=== PATIENT | female | born 1960 | race Caucasian/White ===

== ENCOUNTER 2024-03-23 05:50 | Observation (INO) | payer OTHER, SELFPAY ==
[2024-03-22 22:44] VITALS: BP 135/75
[2024-03-22 23:01] LABS: % Basophils 0.5 % (0-2); % Eosinophils 2.4 % (0-6); % Immature Granulocytes 0.2 % (0-0.5); % Lymphocytes 38.6 % (20.5-51.1); % Monocytes 7.1 % (1.7-9.3); % Neutrophils 51.2 % (42.2-75.2); Absolute Eosinophils 0.2 10^3/uL (0-0.7); Absolute Lymphocytes 2.4 10^3/uL (1.2-3.4); Absolute Monocytes 0.5 10^3/uL (0.1-0.6); Absolute Neutrophils 3.2 10^3/uL (1.4-6.5); Hematocrit 37.6 % (37.0-47.0); Hemoglobin 12.8 g/dL (12.0-16.0); Mean Platelet Volume 9.5 fL (7.4-10.4); Nucleated Red Blood Cells % 0 %; Platelet Count 251 10^3/uL (130-400); Red Blood Cell Count 4.13 10^6/uL (4.20-5.40); Red Cell Dist. Width 13.1 % (11.5-14.5); White Blood Cell Count 6.3 10^3/uL (4.8-10.8)
[2024-03-22 23:22] LABS: ALT (SGPT) 13 U/L (0-35); AST (SGOT) 23 U/L (14-36); Albumin 4.4 g/dl (3.5-5.0); Alkaline Phosphatase 87 U/L (38-126); Blood Urea Nitrogen 12 mg/dl (7-17); Calcium 10.4 mg/dl (8.4-10.2); Carbon Dioxide 24 mmol/L (22-30); Chloride 106 mmol/L (98-107); Glucose 90 mg/dl (70-99); Lipase 75 U/L (23-300); Potassium 3.7 mmol/L (3.5-5.1); Sodium 139 mmol/L (135-145); Total Bilirubin 0.3 mg/dl (0.2-1.3); Total Protein 6.5 g/dl (6.3-8.2); eGFR > 60.00
[2024-03-22 23:30] LABS: Troponin I < 0.012 ng/ml
[2024-03-23] VITALS (17 sets, daily range): BP systolic 98–150; BP diastolic 61–91; PULSE 71–86; BMI 22.7; BMI 22.3
--- NOTE | 2024-03-23 00:55 | ED.GENMED ---
History of Present Illness
General
Chief Complaint: Chest Problem
Source: patient
Exam Limitations: none
Time Seen by Provider: 03/23/24 00:25
History of Present Illness
History of Present Illness:
This is a 83 year old female that comes in with multiple complaints. States that she started with left sided chest pain. States that this was not going away. State that she is also dizzy and she feels like she is spinning. State that this started at
8pm tonight. States that her chest pain now is just intermittent. States that she is normally slightly SOB. States that she was nauseated and has diarrhea daily. Denies any fever, chills, abd pain, vomiting, headache, urinary burning.
Past History
Past History
ED Past Medical History: Asthma, COPD, GERD, Psychiatric (Anxiety, depression) and Other (Chronic low back pain, narcotic dependent, Spinal stenosis)
ED Past Surgical History: Cardiac (Cardiac catheterization April 2010, normal coronary arteries), Cholecystectomy, Orthopedic (Bilateral knee surgery, Bilateral carpal tunnel) and Other (Polyps removed from Larynx)
Social History
Tobacco: Smoker
Alcohol: None
Personal:
Living: with family
Family History
Family History: Negative Diabetes or Early CAD
Review of Systems
Review of Systems
All Other Systems: ROS reviewed and negative except as documented in HPI and ROS
Constitutional: Reports no symptoms; Denies fever or chills
EENT: Reports no symptoms
Respiratory: Denies cough or trouble breathing (No more then her normal)
Cardiac: Reports chest pain
ABD/GI: Reports nausea and diarrhea (daily); Denies abdominal pain or vomiting
: Reports no symptoms; Denies dysuria, frequency or urgency
Musculoskeletal: Reports no symptoms
Skin: Reports no symptoms
Neurological: Reports dizzy (Like she was spinning); Denies headache
Psychiatric: Reports no symptoms
Phy Exam
General Physical Exam
General Presentation: well appearing and no apparent distress
General age: appears stated age
General Skin: warm and dry
General Habitus: normal
General Mental: alert
General Hydration: dry mucous membranes
ENT Exam
ENT Exam: TM's normal, pharynx normal and neck supple
Eye Exam
Eye Exam: EOMI
Cardiovascular Exam
Cardiovascular Exam: regular rate/rhythm, no edema, no murmur and normal peripheral pulses
Pulmonary Exam
Pulmonary Exam: lungs clear, no respiratory distress, no rales, chest non tender, no crackles, no rhonchi, no wheezing and no cough
Gastrointestinal Exam
Gastrointestinal Exam: normal bowel sounds, non tender, soft, no organomegaly, no pulsatile mass and non distended
Musculoskeletal Exam
Musculoskeletal Exam: full ROM and no edema
Skin Exam
Skin Exam: normal color, warm/dry, no rash and no petechia
Psychiatric Exam
Psychiatric Exam: normal mood/affect
Course
Orders/Labs/Results
Orders:
Orders
03/22/24 22:25
EKG [Electrocardiogram (*1)] Urgent
Reason for Study: Chest Pain
EKG- Treatment ONCE
03/22/24 22:50
Electrocardiogram (*1) Urgent
Reason for Study: Other
Other Reason for Exam: Respiratory Distress
Cardiac Monitoring- Treatment ONCE
IV Insert/Care/Rem.- Treatment PRN
O2 Therapy [RESP] Urgent
Titrate/Wean O2 to maintain O2 sat greater than (%): 93
Special Instructions: TO MAINTAIN CONTINUOUS O2 SATS >/= 93%
Pulse Ox/cont/shift [RESP] Urgent
Quantity: 1
Special Instructions: continuous pulse ox
03/22/24 22:57
Complete Blood Count/With Diff Urgent
Comprehensive Metabolic Panel Urgent
Lipase Urgent
Comment: .
Troponin I Urgent
03/23/24 00:13
CR Chest - 2 Views Urgent
Reason For Exam: respiratory distress
03/23/24 00:54
CT Head W/o Iv Contrast Urgent
Comment:
Reason For Exam: Dizziness, she is spinning
0.9% Sodium Chloride 1000 ml [Nss] 1,000 ml IV BOLUS
Meclizine [Antivert] 50 mg PO NOW STA
03/23/24 00:59
Orthostatic VS- Treatment ONCE
03/23/24 01:55
Electrocardiogram (*1) Urgent
Reason for Study: Chest Pain
Other Reason for Exam: Repeat with Troponin
03/23/24 02:18
Nitroglycerin Sublingual [Nitrostat (Sublingual)] 0.4 mg SL NOW STA
03/23/24 02:32
Nitroglycerin Sublingual [Nitrostat (Sublingual)] 0.4 mg SL NOW STA
03/23/24 02:35
Aspirin Chewable [Low Strength Aspirin] 324 mg PO NOW STA
03/23/24 02:36
Troponin I Urgent
Abnormal Lab Results
03/22/24
22:57
RBC 4.13 L 10^6/uL
(4.20-5.40)
Calcium 10.4 H mg/dl
(8.4-10.2)
03/22/24 22:57
03/22/24 22:57
calcium slightly elevated. Troponin <0.012, Lipase normal at 75
Second Troponin <0.012
Vital Signs
Initial and Last Documented VS:
Initial Vital Signs
Temp Pulse Resp BP Pulse Ox
99.4 F 88 20 135/75 98
03/22/24 22:44 03/22/24 22:44 03/22/24 22:44 03/22/24 22:44 03/22/24 22:44
Last Documented Vital Signs
Temp Pulse Resp BP Pulse Ox
99.4 F 75 15 130/73 98
03/22/24 22:44 03/23/24 03:15 03/23/24 03:15 03/23/24 03:00 03/22/24 22:44
MDM/Problems Addressed
Differential Diagnosis Includes:
Vertigo, Anxiety,
MDM/Problems Addressed:
This is a 63 year old female that comes in with c/o chest pain and dizziness. State that the chest pain come and goes and the dizziness she felt like she was spinning. States that she has a history of Vertigo. Patient also turned her head side to
side and then stopped and said that I was moving.
Will get labs, Chest x-ray. CT head, give IV fluids and Antivert.
Back into see patient. Patient states that she is still dizzy and her chest pain is coming back. Will give patient Nitro to see if this helped her pain. Explained that her blood work was normal along with her Troponin.
Patient chest pain went from a 6/10 to a 4/10. Will give second nitro. Into see patient. Explained that she will be admitted for further evaluation. Patient remains dizzy and states that she has been dizzy for a fee days and it was getting worse.
Hospitalist notified.
Repeat ECG: rate 73, NSR, Normal axis. right BBB, T wave inversion, III, aVR, V1, V2, V3, Checked by Dr. Ruiz.
Chronic conditions affecting care: Other
Acute Exacerbation and/or Progression of Chronic Illness: Other (Vertigo)
*Radiology
Radiology exam reviewed: preliminary read by ED provider (Chest- Questionable atelectasis right base. Negative for any acute process. ) and radiology read reviewed (CT head- night hawk-NO evidence for acute intracranial process. )
*Pulse Oximetry
Patient hypoxic: no
*EKG
Interpreted by ED Provider?: Yes
Heart Rate: 89
Rate: normal
Rhythm: sinus
Hawi: normal axis
Interval: normal interval
QRS Pattern: right bundle branch block
Ischemia: T-wave inversion (III, V1, V2, )
*Global Cmo Interpretation
Rate: normal
Heart Rate: 76
Rhythm: sinus
*Critical Care Note
Total Time (30-74mins, 75-104mins- exclusive of procedures): Not Applicable
ED Attending Note
-
Portions of this chart may have been created with voice recognition software.� Occasional wrong word or��sound alike� substitutions may have occurred due to the inherent limitations of voice recognition software.
Discharge Plan
Departure
Patient Disposition: Admit
Date of Disposition: 03/23/24
Time of Disposition: 02:39
Admit to: Telemetry
Presentation/result/management discussed w/ accepting MD/DO: Hospitalist
Patient with high blood pressure during this ER visit?: Yes
Condition: Good
Covid-19: Not Applicable
Discharge Problem:
Chest pain, Dizziness
Prescriptions:
No Action
alprazolam 0.5 MG tablet
0.5 mg PO TIDPRN PRN (Reason: anxiety)
Patient Comments:
pt took 3 mg today
cyclobenzaprine 10 MG tablet
10 mg PO PRN PRN (Reason: neck pain)
oxycodone 10 MG tablet
10 mg PO Q4HWA
morphine 15 MG tablet extended release
15 mg PO BID
bupropion HCl 150 MG tablet sustained-release 12 hr
150 mg PO BID
loperamide 2 MG capsule
2 mg PO Q4HPRN PRN (Reason: loose stool)
fluoxetine 20 MG capsule
20 mg PO DAILY
Referrals:
Itzel Zapien DO [Family Provider] -
Interventions
Interventions:
*Risk Screen - Suicide Last Done: 03/22/24 22:44
*General Assessment Last Done: 03/22/24 22:44
*Neglect/Abuse Screening Last Done: 03/22/24 22:44
ED- Fall Risk Assessment Last Done: 03/22/24 22:44
*ED COVID-19 Vaccine History Last Done: 07/11/24 22:44
ED- Cardiac Assessment Last Done: 03/23/24 00:19
ED- Pulmonary Assessment Last Done: 03/23/24 00:19
Discharge Date and Time
Print Language: CUBAN
[2024-03-23] MEDS: ANTIVERT 50 MG PO (01:05)
[2024-03-23] MEDS: NSS 1000 IV (01:11)
[2024-03-23] MEDS: NITROSTAT (SUBLINGUAL) 0.4 MG SL ×2 (02:25→02:41)
[2024-03-23] MEDS: LOW STRENGTH ASPIRIN 324 MG PO (02:45)
[2024-03-23 03:08] LABS: Troponin I < 0.012 ng/ml
--- NOTE | 2024-03-23 05:28 | HPS.HSE ---
Family Physician
-
Family Physician: Itzel Zapien
Chief Complaint
-
Chest Pain / Dizziness
History of Present Illness
Patient is a 63y F with PMH significant for anxiety / depression and DDD / scoliosis who presents to ED complaining of chest pain and dizziness. Patient states that she has had intermittent symptoms / episodes of dizziness for the past 1-2
years. She states that 'I am spinning' not the room spinning. She has fallen in he past due to this dizziness, but not recently. She states that these symptoms have been worse for the past few days. She denies any vision changes, N/V, etc.
This evening around 8PM, patient developed sharp, stabbing pain in the L chest radiating across to the R. Pain was not associated with dyspnea, diaphoresis or nausea.
She notes that the pain seemed worse with movement and better with rest.
Incidentally, patient notes that she started swimming every day about 2 weeks ago. She is not aware of any specific injury or trauma, but this is certainly a change in activity level for her.
Medical History
Past Medical History
Past Medical History: Reports Other
Additional Past Medical History:
Anxiety / Depression
Osteoporosis
Scoliosis / DDD
IBS
History of Seizure Disorder
Past Surgical History: Reports Other
Additional Past Surgical History:
Cholecystectomy
Bilateral Carpal Tunnel
Bilateral Knee Arthroscopies
Laryngeal Polypectomy
Social History
Tobacco: Smoker (Current every day smoker. 09/13 ppd. Total of approx 35 years total use.)
Alcohol: None
Drug: None
Family History
Family History: CAD
Allergies / Home Medications
Allergies reflects when Allergies were last updated in [facility].
Home Medications with original date entered in [facility]
Allergy/Medication List:
Allergies
Allergy/AdvReac Type Severity Reaction Status Date / Time
codeine [Codeine] Allergy Itching Verified 03/22/24 22:44
trazadone Allergy Unknown Uncoded 03/22/24 22:44
Home Medications
bupropion HCl 75 mg tablet 75 mg PO DAILY 03/23/24
gabapentin 600 mg tablet 600 mg PO DAILY PRN Pain 03/23/24
olanzapine 20 mg tablet 20 mg PO HS 03/23/24
Review of Systems
-
History Source: Patient
A 12 point ROS was completed and negative except as noted: Yes
Constitutional: Denies Fever or Chills
Respiratory: Denies Cough or Trouble Breathing
Cardiac: Reports Chest Pain; Denies Diaphoresis or Palpitations
Abdomen/GI: Denies Abdominal Pain, Nausea, Vomiting or Diarrhea
: Denies Dysuria or Frequency
Neurological: Reports Dizzy; Denies Headache, Weakness or Numbness
Psych: Denies Depression or Anxiety
Physical Exam
Vital Signs
Vital Signs
Temp Pulse Resp BP Pulse Ox
99.4 F 69 13 132/69 98
03/22/24 22:44 03/23/24 05:15 03/23/24 05:15 03/23/24 05:00 03/22/24 22:44
Physical Exam
General: Other (63y F in no acute distress.)
HEENT: Moist mucous membranes and PERRLA
Respiratory: Clear; No Wheezes, Rales or Rhonchi
Cardiac: S1/S2 and Regular Rhythm; No Murmur
GI: Soft, Non Tender, Non Distended and Normal Bowel Sounds
Musculoskeletal: No Clubbing, No Cyanosis, No Edema and Other (Scoliosis with unlevel gaze / head tilt to the R.)
Neuro: AO x 3
Laboratory Results
-
03/22/24 22:57
03/22/24 22:57
Laboratory Results
Total Bilirubin 0.3 mg/dl (0.2-1.3) 03/22/24 22:57
AST 23 U/L (14-36) 03/22/24 22:57
ALT 13 U/L (0-35) 03/22/24 22:57
Alkaline Phosphatase 87 U/L (38-126) 03/22/24 22:57
Troponin I < 0.012 ng/ml 03/23/24 02:36
Lipase 75 U/L (23-300) 03/22/24 22:57
Impression/Plan
-
A/P: Patient is a 63y F with PMH significant for anxiety / depression and scoliosis who presents to ED complaining of dizziness and chest pain.
Acute on Chronic Dizziness
- Observe for further evaluation and treatment.
- PT / Vestibular therapy eval for dizziness / gait assessment.
- ? if chronic symptoms are related to her scoliosis / unlevel gaze?
- Follow for any new / worsening symptoms.
Atypical Chest Pain
- This seems musculoskeletal in nature with recent swimming regimen and characteristics of pain.
- EKG is unremarkable and troponin is undetectable x 2 sets.
- Complete third set this AM.
- Follow for any new / worsening symptoms.
- PT eval as noted above.
- Tylenol for pain control.
Anxiety / Depression
- Stable. Continue outpatient medications.
Scoliosis / DDD / Osteoporosis
- PT / OT evals as noted above.
DVT Prophylaxis: SCDs
Code Status: Full
[2024-03-23] MEDS: WELLBUTRIN REGULAR RELEASE 75 MG PO (10:41)
[2024-03-23] MEDS: LOW STRENGTH ASPIRIN 81 MG PO (10:41)
--- NOTE | 2024-03-23 16:47 | W.PN.HOSP.TC ---
Today's Communication/Plan
-
DC
Assessment / Plan
Assessment / Plan
A/P: Patient is a 63y F with PMH significant for anxiety / depression and scoliosis who presents to ED complaining of dizziness and chest pain.
Acute on Chronic Dizziness
- Her symptom of dizziness is more and imbalance like disequilibrium. No vertigo. Not lightheaded. Nonfocal neurologically. She had a CT head on this admission which was negative for any acute intracranial findings. She does have a history
of peripheral neuropathy which could be contributing. She had a PET scan done in 2021 which showed Non-FDG avid sclerosis involving the majority of the C4 vertebral body and to a lesser degree the C5 and C6 vertebral bodies, corresponding with MRI
findings dating back to 05/17/2018, slightly progressed from that time and most in keeping with chronic degenerative changes. She apparently is known to have cervical disc disease and I advised her to check a dedicated MRI of the cervical spine if
her dizziness is worse to rule out worsening cervical spondylosis.She understands it.
Atypical Chest Pain
- This seems musculoskeletal in nature with recent swimming regimen and characteristics of pain.
- EKG is unremarkable and troponin is undetectable x 2 sets.
- Reproducible.
- Treat symptomatically.
Anxiety / Depression
- Stable. Continue outpatient medications.
Scoliosis / DDD / Osteoporosis
- PT / OT evals as noted above.
DVT Prophylaxis: SCDs
Code Status: Full
Medically stable for discharge.
Anticipated Discharge: Today
Subjective/Interval History
-
Date of Service: March 23, 2024
Still with some intermittent chest pain in the left side which goes across to the right in the lower part of the chest. Worse with movement.
No shortness of breath.
No nausea vomiting.
It did not feel like her GERD. She uses Pepcid as needed for her GERD.
She did start a swimming program 2 weeks ago.
She has chronic imbalance feeling suggestive disequilibrium going on for quite some time. She sees neurologist. She has peripheral neuropathy involving both the legs. She also has cervical disc disease.
Objective Data
-
Vital Signs:
Vital Signs
Temp Pulse Resp BP Pulse Ox
98.6 F 80 20 145/91 95
03/23/24 15:31 03/23/24 15:31 03/23/24 15:31 03/23/24 15:31 03/23/24 15:31
Review of Systems
-
Constitutional: Denies Fever
Respiratory: Denies Trouble Breathing
Abdomen/GI: Denies Abdominal Pain, Nausea or Vomiting
Physical Exam
-
General: No Apparent Distress
HEENT: Moist Mucous Membranes
Respiratory: Clear to Auscultation, Non Labored Respirations and Other (Left mid clavicular area to left CC area in 4th and 5th area there is reproducible tenderness. Winces in pain when i touch palpalte her ); Negative Accessory Resp Muscle Use
Cardiac: Regular Rhythm and S1/S2; Negative Tachycardic
Neuro: AO x 3
Psych: Calm
Data Reviewed
-
Labs: Labs Reviewed by me
--- NOTE | 2024-03-23 16:54 | W.DS.TRANS ---
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
-
Discharge Instructions:
Discharge Diagnosis/Procedures Left-sided chest pain suspected musculoskeletal
chronic disequilibrium; history of peripheral
neuropathy and cervical disc disease
Diet Regular
Activity As tolerated
Driving Restrictions As prior to admission
Bathing Restrictions None
Others Tests MRI cervical spine without contrast - arrange it
through PCP
Instructions:
Stand-Alone Forms:
Changes to Home Medications: No
Discharge Medications:
DC Medications w/original date entered in [facility] [employer]
acetaminophen 325 mg tablet 650 mg (2 x 325 mg) PO Q4HPRN PRN Mild Pain / Temp > 101 #1 tab 03/23/24
alprazolam 0.5 mg tablet (Xanax) 0.5 mg PO BID 03/23/24
bupropion HCl 75 mg tablet 75 mg PO DAILY 03/23/24
ibuprofen 200 mg tablet (Advil) 200 mg PO Q6HPRN PRN MILD PAIN 03/23/24
loperamide 2 mg tablet 2 mg PO Q4HPRN PRN DIARRHEA 03/23/24
olanzapine 20 mg tablet 20 mg PO HS 03/23/24
Home Medication Changes
Pending Results: No
== END 2024-03-23 18:58 | disposition home or self-care (01) ==
LOC: 4 EAST ACU 05:50
PROVIDERS: Clinical Nurse Specialist Family Health; ADMITTING PHYSICIAN Hospitalist; ATTENDING PHYSICIAN Internal Medicine; EMERGENCY PHYSICIAN Student in an Organized Health Care Education/Training Program; FAMILY PHYSICIAN Family Medicine
DX: R07.89 Other chest pain (principal); R42 Dizziness and giddiness; R11.0 Nausea; R19.7 Diarrhea, unspecified; F41.9 Anxiety disorder, unspecified; G89.29 Other chronic pain; F32.A Depression, unspecified; K21.9 Gastro-esophageal reflux disease without esophagitis; J44.9 Chronic obstructive pulmonary disease, unspecified; J98.11 Atelectasis; G62.9 Polyneuropathy, unspecified; M50.90 Cervical disc disorder, unspecified, unspecified cervical region; F11.20 Opioid dependence, uncomplicated; R06.03 Acute respiratory distress; M41.9 Scoliosis, unspecified; M81.0 Age-related osteoporosis without current pathological fracture; K58.9 Irritable bowel syndrome, unspecified; G40.909 Epilepsy, unspecified, not intractable, without status epilepticus; F17.210 Nicotine dependence, cigarettes, uncomplicated; Z90.49 Acquired absence of other specified parts of digestive tract; Z88.5 Allergy status to narcotic agent
CPT/HCPCS: 70450; 71046; 80053; 83690; 84484; 85025; 93005; 96360; 96361; 97162; 99285; G0378

== ENCOUNTER → 2024-04-19 09:03 | Outpatient (REF) | payer OTHER, SELFPAY | LOC: HWRAD 09:03 | PROVIDERS: ATTENDING PHYSICIAN Family Medicine | DX: R22.1 Localized swelling, mass and lump, neck (principal) | CPT/HCPCS: 70491; Q9967 ==

== ENCOUNTER → 2024-05-17 10:17 | Outpatient (REF) | payer OTHER, SELFPAY | LOC: HWRCS 10:17 | PROVIDERS: ATTENDING PHYSICIAN Family Medicine | DX: I07.1 Rheumatic tricuspid insufficiency (principal) | CPT/HCPCS: 93306 ==

== ENCOUNTER 2024-09-13 19:52 | Emergency (ER) | payer OTHER, SELFPAY ==
[2024-09-13 19:54] VITALS: BP 175/85
--- NOTE | 2024-09-13 22:47 | ED.MUSCINJ ---
HPI-Injury
General
Chief Complaint: Musculo-Skeletal Complaint
Source: patient
Exam Limitations: none
Time Seen by Provider: 09/13/24 20:38
Nursing documentation reviewed up to this point in time: agreed with
History of Present Illness-Injury
Is this injury a work related problem?: No
Is pt an associate of [facility]?: No
Initial Injury comments:
Patient to ED with complaint of pain and swelling to riht 4th finger. States she jammed finger last PM. Unble to remove her ring. Brought to ED by family for eval.
Past History
Past History
ED Past Medical History: Asthma, COPD, GERD, Psychiatric (Anxiety, depression) and Other (Chronic low back pain, narcotic dependent, Spinal stenosis)
ED Past Surgical History: Cardiac (Cardiac catheterization April 2010, normal coronary arteries), Cholecystectomy, Orthopedic (Bilateral knee surgery, Bilateral carpal tunnel) and Other (Polyps removed from Larynx)
Social History
Tobacco: Smoker
Alcohol: None
Personal:
Living: with family
Family History
Family History: Negative Diabetes or Early CAD
Review of Systems
Review of Systems
Allergies reviewed?: Yes
All Other Systems: ROS reviewed and negative except as documented in HPI and ROS
Constitutional: Reports no symptoms
Musculoskeletal: Reports joint pain (Pain and swelling to right 4th finger. Unable to remove ring.)
Skin: Reports other (swelling right 4th finger)
Neurological: Reports no symptoms
Psychiatric: Reports no symptoms
Musculoskeletal Injury Exam
Musculoskeletal Injury Exam
Right Fourth Finger:
Pain with Movement?: Moderate
Tender to palpation?: Moderate
Soft tissue swelling?: Moderate
External deformity and angulation?: None
Joint effusion?: None
Contusion?: None
Hematoma-local bleeding into tissue?: None
Strain- Sprain- Tear (Connective tissue injury)?: Moderate
Crepitus with movement?: No
Joint instability?: No
Malalignment/deformity?: No
Range of motion: Limited
Distal skin color and temperature: normal-warm & good color
Capillary Refill: normal
Normal distal neurovascular exam?: Yes
Phy Exam
General Physical Exam
General Presentation: well appearing and no apparent distress
General age: appears stated age
General Skin: warm and dry
General Habitus: normal
General Mental: alert
Musculoskeletal Exam
Musculoskeletal Exam: neuro vasc intact and other (Pain and swelling to right 4th finger. RIng cutter used to remove ring. Ring remains in patients possession. )
Skin Exam
Skin Exam: normal color, warm/dry and no rash
Psychiatric Exam
Psychiatric Exam: normal mood/affect
Injury Course
Orders/Labs/Results
Orders:
Orders
09/13/24 21:09
Finger(s)/Thumb 2 View Rt [CR Finger(s)/thumb Min 2 Vw Rt] Urgent
Comment:
Reason For Exam: swelling pain
09/13/24 21:34
Aluminium Finger Splint Right ONCE
*Radiology
Radiology exam reviewed: radiology read reviewed
*Pulse Oximetry
Patient hypoxic: no
*Critical Care Note
Total Time (30-74mins, 75-104mins- exclusive of procedures): Not Applicable
ED Attending Note
-
Portions of this chart may have been created with voice recognition software.� Occasional wrong word or��sound alike� substitutions may have occurred due to the inherent limitations of voice recognition software.
Discharge Plan
Departure
Patient Disposition: Home (Routine Discharge)
Date of Disposition: 09/13/24
Time of Disposition: 21:35
Patient with high blood pressure during this ER visit?: No
Condition: Good
Covid-19: Not Applicable
Discharge Problem:
Finger swelling
Instructions: Ibuprofen, RICE Therapy
Prescriptions:
No Action
bupropion HCl 75 mg Tablet
75 mg PO DAILY
olanzapine 20 mg Tablet
20 mg PO HS
loperamide 2 mg Tablet
2 mg PO Q4HPRN PRN (Reason: DIARRHEA)
alprazolam [Xanax] 0.5 mg Tablet
0.5 mg PO BID
ibuprofen [Advil] 200 mg Tablet
200 mg PO Q6HPRN PRN (Reason: MILD PAIN)
acetaminophen 325 mg Tablet
650 mg PO Q4HPRN PRN (Reason: Mild Pain / Temp > 101) Qty: 1 0RF
Referrals:
Vanessa Ramirez MD [Family Provider] -
Interventions
Interventions:
*Risk Screen - Suicide Last Done: 09/13/24 19:54
*General Assessment Last Done: 09/13/24 19:54
*Neglect/Abuse Screening Last Done: 09/13/24 19:54
*Nursing Disposition Last Done: 09/13/24 21:39
ED-Musculoskeletal Assessment Last Done: 09/13/24 20:36
Discharge Date and Time
Discharge Date/Time: 09/13/24 21:40
Print Language: CHILEAN
== END 2024-09-13 21:40 | disposition home or self-care (01) ==
LOC: EMR 19:52
PROVIDERS: EMERGENCY PHYSICIAN Emergency Medicine; FAMILY PHYSICIAN Obstetrics & Gynecology
DX: M79.89 Other specified soft tissue disorders (principal); M79.644 Pain in right finger(s); X58.XXXA Exposure to other specified factors, initial encounter; J44.89 Other specified chronic obstructive pulmonary disease; K21.9 Gastro-esophageal reflux disease without esophagitis; F32.A Depression, unspecified; F41.9 Anxiety disorder, unspecified; G89.29 Other chronic pain; M54.50 Low back pain, unspecified; F11.20 Opioid dependence, uncomplicated; M48.00 Spinal stenosis, site unspecified; F17.200 Nicotine dependence, unspecified, uncomplicated; Z90.49 Acquired absence of other specified parts of digestive tract; Z88.5 Allergy status to narcotic agent; Z88.8 Allergy status to other drugs, medicaments and biological substances
CPT/HCPCS: 99283; 29130; 73140

== ENCOUNTER 2024-11-25 15:46 | Emergency (ER) | payer OTHER, SELFPAY ==
[2024-11-25 15:53] VITALS: BP 156/83
[2024-11-25 16:17] LABS: % Basophils 0.3 % (0-2); % Eosinophils 3.1 % (0-6); % Immature Granulocytes 0.4 % (0-0.5); % Lymphocytes 39.3 % (20.5-51.1); % Monocytes 6.4 % (1.7-9.3); % Neutrophils 50.5 % (42.2-75.2); Absolute Eosinophils 0.2 10^3/uL (0-0.7); Absolute Monocytes 0.5 10^3/uL (0.1-0.6); Absolute Neutrophils 3.9 10^3/uL (1.4-6.5); Hematocrit 37.5 % (37.0-47.0); Hemoglobin 12.7 g/dL (12.0-16.0); Mean Corp Hgb Conc. 33.9 g/dL (33.0-37.0); Mean Corpuscular Hgb 31.4 pg (27.0-31.0); Mean Corpuscular Volume 92.8 fL (81.0-99.0); Mean Platelet Volume 9.2 fL (7.4-10.4); Nucleated Red Blood Cells % 0 %; Platelet Count 256 10^3/uL (130-400); Red Blood Cell Count 4.04 10^6/uL (4.20-5.40); Red Cell Dist. Width 12.5 % (11.5-14.5); White Blood Cell Count 7.6 10^3/uL (4.8-10.8)
[2024-11-25 16:31] LABS: ALT (SGPT) 18 U/L (0-35); AST (SGOT) 33 U/L (14-36); Albumin 4.2 g/dl (3.5-5.0); Alkaline Phosphatase 90 U/L (38-126); Blood Urea Nitrogen 11 mg/dl (7-17); Calcium 9.3 mg/dl (8.4-10.2); Carbon Dioxide 28 mmol/L (22-30); Chloride 102 mmol/L (98-107); Glucose 89 mg/dl (70-99); Potassium 4.2 mmol/L (3.5-5.1); Sodium 138 mmol/L (135-145); Total Bilirubin 0.5 mg/dl (0.2-1.3); Total Protein 6.4 g/dl (6.3-8.2); eGFR > 60.00
[2024-11-25 16:42] LABS: Troponin I < 0.012 ng/ml
[2024-11-25 16:54] LABS: Magnesium 1.9 mg/dl (1.6-2.3)
[2024-11-25 17:02] VITALS: BP 121/70
[2024-11-25] MEDS: TORADOL 15 MG IV (17:36)
--- NOTE | 2024-11-25 17:37 | ED.GENMED ---
History of Present Illness
General
Chief Complaint: Chest Pain
Time Seen by Provider: 11/25/24 15:58
History of Present Illness
History of Present Illness:
64-year-old female with history of spinal stenosis and GERD presents to the emergency department for evaluation of anterior central chest pain beginning this morning. Pain is intermittent and sharp, lasting seconds to minutes. No obvious provoking
or palliating factors. Does not radiate. No history of similar. She also notes having intermittent spasms of the lower extremities that do not always correlate with the pain. No shortness of breath, nausea, or vomiting. Did have a recent viral
URI that has been slowly improving.
Past History
Past History
ED Past Medical History: Asthma, COPD, GERD, Psychiatric (Anxiety, depression) and Other (Chronic low back pain, narcotic dependent, Spinal stenosis)
ED Past Surgical History: Cardiac (Cardiac catheterization April 2010, normal coronary arteries), Cholecystectomy, Orthopedic (Bilateral knee surgery, Bilateral carpal tunnel) and Other (Polyps removed from Larynx)
Social History
Tobacco: Smoker
Alcohol: None
Personal:
Living: with family
Family History
Family History: Negative Diabetes or Early CAD
Review of Systems
Review of Systems
Allergies reviewed?: Yes
All Other Systems: ROS reviewed and negative except as documented in HPI and ROS
Phy Exam
Physical Exam
Physical Exam:
GEN: Well appearing, NAD, WDWN
HEENT: Oral mucosa moist, no scleral icterus
Cardiac: Regular rate and rhythm, no murmurs
Lung: No respiratory distress, no tachypnea, lungs clear to auscultation bilaterally
Chest: No reproducible chest wall tenderness
MSK: No gross deformity or injuries
Skin: Good color, no pallor or jaundice, no rashes
Neuro: AO x3, moves all extremities freely
Psych: Calm, cooperative
Scores
Heart Score for Chest Pain Patients
STEMI patient?: No
History: Slightly or Non-Suspicious
ECG: Normal
Age: >45 - <65 years
Risk Factors: 1 or 2 Risk Factors
Troponin: </= Normal Limit
Heart Score for Chest Pain Patients: 2
Heart Score Risk: 2.5% MACE over next 6 weeks
Course
Orders/Labs/Results
Orders:
Orders
11/25/24 15:48
Electrocardiogram (*1) Urgent
Reason for Study: Chest Pain
EKG- Treatment ONCE
11/25/24 16:10
CMP [Comprehensive Metabolic Panel] Urgent
Complete Blood Count/With Diff Urgent
Magnesium Urgent
Comment: ADD ON
Troponin I Urgent
11/25/24 16:16
Add On- LAB Urgent
Tests Added?: magnesium
CR Chest - 2 Views Urgent
Comment:
Reason For Exam: chest pain
11/25/24 17:18
Ketorolac [Toradol] 15 mg IV NOW STA
Abnormal Lab Results
11/25/24
16:10
RBC 4.04 L 10^6/uL
(4.20-5.40)
MCH 31.4 H pg
(27.0-31.0)
11/25/24 16:10
11/25/24 16:10
Vital Signs
Initial and Last Documented VS:
Initial Vital Signs
Temp Pulse Resp BP Pulse Ox
98.0 F 80 18 156/83 96
11/25/24 15:53 11/25/24 15:53 11/25/24 15:53 11/25/24 15:53 11/25/24 15:53
Last Documented Vital Signs
Temp Pulse Resp BP Pulse Ox
98.0 F 76 18 130/67 97
11/25/24 15:53 11/25/24 17:58 11/25/24 17:58 11/25/24 17:58 03/16/25 17:58
MDM/Problems Addressed
MDM/Problems Addressed:
EKG and labs are reassuring. Chest x-ray shows no acute pathology. Patient did have 1 bout of chest discomfort while in the ED, no changes noted on telemetry. Will treat supportively with NSAIDs, story is not consistent with cardiac chest pain
*Critical Care Note
Total Time (30-74mins, 75-104mins- exclusive of procedures): Not Applicable
ED Attending Note
-
Portions of this chart may have been created with voice recognition software.� Occasional wrong word or��sound alike� substitutions may have occurred due to the inherent limitations of voice recognition software.
Discharge Plan
Departure
Patient Disposition: Home (Routine Discharge)
Date of Disposition: 11/25/24
Time of Disposition: 17:42
Patient with high blood pressure during this ER visit?: No
Discharge Problem:
Atypical chest pain
Instructions: Chest Pain PCP Follow Up
Prescriptions:
No Action
bupropion HCl 75 mg Tablet
75 mg PO DAILY
olanzapine 20 mg Tablet
20 mg PO HS
loperamide 2 mg Tablet
2 mg PO Q4HPRN PRN (Reason: DIARRHEA)
alprazolam [Xanax] 0.5 mg Tablet
0.5 mg PO BID
ibuprofen [Advil] 200 mg Tablet
200 mg PO Q6HPRN PRN (Reason: MILD PAIN)
acetaminophen 325 mg Tablet
650 mg PO Q4HPRN PRN (Reason: Mild Pain / Temp > 101) Qty: 1 0RF
Interventions
Interventions:
*Risk Screen - Suicide Last Done: 11/25/24 15:53
*General Assessment Last Done: 11/25/24 15:53
*Neglect/Abuse Screening Last Done: 11/25/24 15:53
*ED- Fall Risk Assessment Last Done: 11/25/24 18:02
*ED COVID-19 Vaccine History Last Done: 11/25/24 15:53
*Nursing Disposition Last Done: 11/25/24 18:02
ED- Cardiac Assessment Last Done: 11/25/24 16:15
Discharge Date and Time
Discharge Date/Time: 11/25/24 18:02
Print Language: FRISIAN
[2024-11-25 17:58] VITALS: BP 130/67
== END 2024-11-25 18:02 | disposition home or self-care (01) ==
LOC: EMR 15:46
PROVIDERS: EMERGENCY PHYSICIAN Emergency Medicine; FAMILY PHYSICIAN Family Medicine
DX: R07.89 Other chest pain (principal); R25.2 Cramp and spasm; M48.00 Spinal stenosis, site unspecified; K21.9 Gastro-esophageal reflux disease without esophagitis; F32.A Depression, unspecified; F41.9 Anxiety disorder, unspecified; G89.29 Other chronic pain; M54.50 Low back pain, unspecified; F11.20 Opioid dependence, uncomplicated; J44.89 Other specified chronic obstructive pulmonary disease; F17.200 Nicotine dependence, unspecified, uncomplicated; Z90.49 Acquired absence of other specified parts of digestive tract; Z88.5 Allergy status to narcotic agent; Z88.8 Allergy status to other drugs, medicaments and biological substances
CPT/HCPCS: 99284; 96374; 71046; 80053; 83735; 84484; 85025; 93005

== ENCOUNTER → 2024-11-26 14:18 | Outpatient (REF) | payer OTHER, SELFPAY | LOC: HWRAD 14:18 | PROVIDERS: ATTENDING PHYSICIAN Physician Assistant Medical; FAMILY PHYSICIAN Family Medicine | DX: S32.11 Zone I fracture of sacrum (principal); D61.89 Other specified aplastic anemias and other bone marrow failure syndromes; M50.10 Cervical disc disorder with radiculopathy, unspecified cervical region; S34.01XA Concussion and edema of lumbar spinal cord, initial encounter | CPT/HCPCS: 72125; 72192 ==

== ENCOUNTER → 2024-12-21 10:06 | Outpatient (REF) | payer OTHER, SELFPAY | LOC: HWRAD 10:06 | PROVIDERS: ATTENDING PHYSICIAN Family Medicine | DX: Z87.898 Personal history of other specified conditions (principal); R25.3 Fasciculation; R25.1 Tremor, unspecified | CPT/HCPCS: 70450 ==